=== PATIENT | female | born 1990 | race Caucasian/White ===

== ENCOUNTER 2019-02-07 18:07 | Emergency (ER) | payer MEDICAID ==
[~2019-02-07] VITALS: Ht 177.8 cm; Wt 110.0 kg
[2019-02-07] MEDS ORDERED: SODIUM CHLORIDE 0.9% 1,000 ML IV ONE (18:43)
[2019-02-07] MEDS ORDERED: ONDANSETRON HCL 4MG/2ML INJ IV STA (18:43)
[2019-02-07] MEDS ORDERED: LORAZEPAM 2MG/ML CPJ IV ONE (18:45)
[2019-02-07 19:24] LABS: HEMATOCRIT. 39.2 % (36.0-48.0); HEMOGLOBIN. 13.2 g/dL (12.0-16.0); MEAN CORPUSCULAR HEMOGLOBIN 28.7 pg (28.0-32.0); MEAN CORPUSCULAR VOLUME 85.4 fL (81.0-99.0); RED BLOOD CELL COUNT 4.59 mill/uL (4.2-5.4)
[2019-02-07 19:25] LABS: BASOPHILS % 0.9 % (0.0-2.0); EOSINOPHILS % 2.3 % (0.0-5.0); LYMPHOCYTES % 23.4 % (20.0-50.0); MEAN PLATELET VOLUME 10.7 fl (7.4-10.4); NEUTROPHILS % 65.4 % (40.0-76.0); PLATELET 251 x1000/uL (130-400); RED CELL DISTRIBUTION WIDTH 13.4 % (11.6-14.6)
[2019-02-07 19:27] LABS: CHLORIDE 104 mEq/L (98-107)
[2019-02-07 19:28] LABS: HCG SCREEN NEGATIVE
[2019-02-07 19:31] LABS: ETHANOL BLOOD < 10 mg/dL
[2019-02-07 19:40] LABS: *AMPHETAMINES SCREEN URINE NEGATIVE (NEGATIVE); *BARBITURATES SCREEN URINE NEGATIVE (NEGATIVE); *BENZODIAZEPINES SCREEN URINE NEGATIVE (NEGATIVE); *COCAINE SCREEN URINE NEGATIVE (NEGATIVE); METHADONE URINE SCREEN NEGATIVE (NEGATIVE); OPIATES URINE SCREEN NEGATIVE (NEGATIVE); PHENCYCLIDINE URINE SCREEN NEGATIVE (NEGATIVE)
[2019-02-07 19:41] LABS: CANNABINOID URINE SCREEN NEGATIVE (NEGATIVE)
[2019-02-07 21:40] VITALS: BP 116/64
== END 2019-02-07 21:40 | disposition home or self-care (01) ==
LOC: ER 18:07
DX: E86.0 Dehydration (principal); R03.0 Elevated blood-pressure reading, without diagnosis of hypertension
CPT/HCPCS: 36415; 80053; 80305; 80320; 81025; 83690; 83880; 84484; 84703; 85025; 93005; 96361; 96374; 96375; 99284; J2060; J2405; J7030; G0480

== ENCOUNTER 2023-01-29 20:42 | Emergency (ER) | payer MEDICAID, MEDICARE ==
[~2023-01-29] VITALS: Ht 175.3 cm; Wt 121.0 kg
[2023-01-29 20:47] VITALS: BP 131/79; PULSE 103; RESP 18; TEMP 98.1; O2SAT 99
== END 2023-01-30 02:10 | disposition left against medical advice (07) ==
LOC: ER 20:42
DX: Z53.21 Procedure and treatment not carried out due to patient leaving prior to being seen by health care provider (principal)
CPT/HCPCS: 99281